=== PATIENT | female | born 2000 | race Two or more races ===

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

== ENCOUNTER 2019-01-08 22:32 | Emergency (ER) | payer OTHER ==
[2019-01-08 22:49] VITALS: BP 144/81
== END 2019-01-09 00:32 | disposition left against medical advice (07) ==
LOC: ED 22:32
DX: Z53.21 Procedure and treatment not carried out due to patient leaving prior to being seen by health care provider (principal)
CPT/HCPCS: 99281

== ENCOUNTER 2019-01-09 15:26 | Emergency (ER) | payer OTHER ==
[2019-01-09 16:13] VITALS: BP 127/80
--- NOTE | 2019-01-09 16:54 | UC ---
Skin Complaint HPI - HPI Summary HPI Summary: 18-year-old female with sore on her back over the past few days. - History of Current Complaint Chief Complaint: UCSkin Time Seen by Provider: 01/09/19 16:45 Stated Complaint: SORE ON BACK Hx Obtained From: Patient Hx Last Menstrual Period: [id number] ?: No Onset/Duration: Gradual Onset Skin Exposure Onset/Duration: Days Ago Timing: Constant Onset Severity: Mild Current Severity: Moderate Pain Intensity: 8 Location: Other - Mid back Character: Swelling, Pain, Redness Alleviating Factor(s): Nothing Associated Signs & Symptoms: Positive: Negative Related History: Other: - Patient has a history of abscesses in the past. - Allergy/Home Medications Allergies/Adverse Reactions: Allergies Allergy/AdvReac Type Severity Reaction Status Date / Time No Known Allergies Allergy Verified 01/09/19 16:13 Home Medications: Home Medications Acetaminophen TAB* [Tylenol TAB*] 975 mg PO Q6H PRN 01/09/19 [History Confirmed 01/09/19] PMH/Surg Hx/FS Hx/Imm Hx Previously Healthy: Yes Other History Of: Negative For: Anticoagulant Therapy - Surgical History Surgical History: Yes Surgery Procedure, Year, and Place: TONSILLECTOMY 2011 - Family History Known Family History: Positive: Hypertension, Diabetes, Other - lymphoma Negative: Cardiac Disease Family History: lymphoma - Social History Alcohol Use: None Substance Use Type: None Smoking Status (MU): Never Smoked Tobacco - Immunization History Most Recent Influenza Vaccination: 2014 Vaccination Up to Date: No Review of Systems All Other Systems Reviewed And Are Negative: Yes Constitutional: Positive: Negative Skin: Positive: Other - Patient has a history of abscesses. She has had this area over the past few days with tenderness and swelling, no drainage. Motor: Positive: Negative Neurovascular: Positive: Negative Musculoskeletal: Positive: Negative Neurological: Positive: Negative Psychological: Positive: Negative Is Patient Immunocompromised?: No Physical Exam Triage Information Reviewed: Yes Appearance: Well-Appearing, No Pain Distress, Well-Nourished Vital Signs: Initial Vital Signs Temp 98.8 F 01/09/19 16:10 Pulse 81 01/09/19 16:10 Resp 16 01/09/19 16:10 BP 127/80 01/09/19 16:10 Pulse Ox 99 01/09/19 16:10 Vital Signs Reviewed: Yes Skin: Positive: Other - Patient has an area of cellulitis in her mid back. No fluctuance, the midportion is very hard. Course/Dx - Course Course Of Treatment: At this point in time the cellulitis might be forming an abscess but it is not ready to be incised. I'm starting her on cephalexin 500 mg by mouth 3 times a day for 10 days because she refuses Bactrim saying that it never helps her. She is to apply warm moist compresses to the area and follow-up with a surgeon next week. She does have an appointment with the deliverer food on . I felt she should have this rechecked before . If she starts running fever, chills, vomiting and unable keep the medicine down that she go to the ER. - Diagnoses Provider Diagnosis: Cellulitis of mid back region Discharge - Sign-Out/Discharge Documenting (check all that apply): Patient Departure All imaging exams completed and their final reports reviewed: No Studies - Discharge Plan Condition: Fair Disposition: HOME Prescriptions: Cephalexin CAP* [Keflex 500 CAP*] 500 mg PO TID 10 Days #30 cap Patient Education Materials: Cellulitis (DC) Referrals: No Primary Care Phys,NOPCP [Primary Care Provider] - [facility] [Outside] Additional Instructions: Warm moist compresses to the area 4-6 times a day for 20 minutes each time. Definite follow-up with a surgeon on Saturday for a recheck. The phone number is [phone], [facility] Go to the emergency room over the weekend if you develop fever, chills, worsening symptoms. May take Tylenol every 4 hours and Motrin every 8 hours for pain. - Billing Disposition and Condition Condition: FAIR Disposition: Home
== END 2019-01-09 17:01 | disposition home or self-care (01) ==
LOC: UCEAST 15:26
DX: L03.312 Cellulitis of back [any part except buttock and flank] (principal)
CPT/HCPCS: 99212; G0463

== ENCOUNTER 2019-01-10 07:54 | Emergency (ER) | payer OTHER ==
[2019-01-10] MEDS ORDERED: Lidocaine 1% MPF ** 5 ML VIAL INJ ONE (08:55)
--- NOTE | 2019-01-10 09:35 | ED ---
Skin Complaint - HPI Summary HPI Summary: Patient is a 18-year-old female who presents emergency department for possible abscess to upper back 3-4 days. Patient states she is a history of abscesses. Patient states she went to [facility] yesterday and was diagnosed with cellulitis and placed on Keflex. Patient states today pain and swelling increased and presents for reevaluation. Patient otherwise denies past medical history. Patient denies fever, chills, nausea, vomiting. Symptoms are mild in severity. Touching area makes symptoms worse. Nothing makes symptoms better. - History of Current Complaint Chief Complaint: EDRashSkinAbscess Time Seen by Provider: 01/10/19 08:50 Stated Complaint: BOIL ON BACK PER PT Hx Obtained From: Patient Hx Last Menstrual Period: [id number] Pain Intensity: 7 - Allergy/Home Medications Allergies/Adverse Reactions: Allergies Allergy/AdvReac Type Severity Reaction Status Date / Time No Known Allergies Allergy Verified 01/10/19 07:59 Home Medications: Home Medications Acetaminophen [Tylenol Extra Strength] 1,000 mg PO Q8H PRN 01/10/19 [History Confirmed 01/10/19] PMH/Surg Hx/FS Hx/Imm Hx Previously Healthy: Yes Endocrine/Hematology History: Denies: Hx Anticoagulant Therapy, Hx Blood Disorders, Hx Diabetes, Hx Thyroid Disease Cardiovascular History: Denies: Hx Hypertension, Hx Pacemaker/ICD Respiratory History: Reports: Hx Asthma - well controlled Denies: Hx Chronic Obstructive Pulmonary Disease (COPD) GI History: Reports: Hx Gastroesophageal Reflux Disease Denies: Hx Ulcer History: Reports: Other Problems/Disorders - ovarian cysts Denies: Hx Dialysis, Hx Renal Disease Psychiatric History: Denies: Hx Panic Disorder - Surgical History Surgery Procedure, Year, and Place: TONSILLECTOMY 2011 - Immunization History Date of Tetanus Vaccine: UTD Date of Influenza Vaccine: UTD Infectious Disease History: No Infectious Disease History: Reports: History Other Infectious Disease - h. pylori; multiple skin abscesses Denies: Hx Clostridium Difficile, Hx Hepatitis, Hx Human Immunodeficiency Virus (HIV), Hx of Known/Suspected MRSA, Hx Shingles, Hx Tuberculosis, Hx Known/ Suspected VRE, Hx Known/Suspected VRSA, Traveled Outside the [place] in Last 30 Days - Family History Known Family History: Positive: Hypertension, Diabetes, Other - lymphoma Negative: Cardiac Disease Family History: lymphoma - Social History Alcohol Use: None Hx Substance Use: No Substance Use Type: Reports: None Hx Tobacco Use: No Smoking Status (MU): Never Smoked Tobacco Review of Systems Constitutional: Negative Negative: Fever, Chills Gastrointestinal: Negative Negative: Vomiting, Nausea Positive: Other - abscess to back All Other Systems Reviewed And Are Negative: Yes Physical Exam Triage Information Reviewed: Yes Vital Signs On Initial Exam: Initial Vitals Temp Pulse Resp BP Pulse Ox 99.0 F 86 14 142/83 96 01/10/19 07:56 01/10/19 07:56 01/10/19 07:56 01/10/19 07:56 01/10/19 07:56 Vital Signs Reviewed: Yes Appearance: Positive: Well-Appearing - Pt. sleeping in bed in NAD. Family member present. Skin: Positive: Warm, Dry, Other - Noted to upper back centrally there is a small scab with surrouding fluctuance and induration with overlying erythema. Head/Face: Positive: Normal Head/Face Inspection Eyes: Positive: Normal, EOMI, MARILUZ Neck: Positive: Supple Neurological: Positive: Normal, CN Intact II-III Psychiatric: Positive: Affect/Mood Appropriate Procedures - Incision and Drainage Posterior Midline Back Anesthesia: Local, Lidocaine Instrument(s): Scalpel - Small amount of yellowish purulent matter expressed Packing: Gauze Diagnostics - Vital Signs Vital Signs Temp Pulse Resp BP Pulse Ox 01/10/19 07:56 99.0 F 86 14 142/83 96 - Laboratory Lab Statement: Any lab studies that have been ordered have been reviewed, and results considered in the medical decision making process. Course/Dx - Course Course Of Treatment: Patient presenting with abscess to her back. She is afebrile well-appearing. Abscess was drained and packed noted above. Advised packing removal in 48 hours. To continue antibiotic as directed. Apply warm compresses. Tylenol or Motrin for pain as directed. We'll return to the ER for increased redness, swelling, fever, vomiting or if concerned. Patient understands and agrees with plan. - Differential Diagnoses - Skin Complaint Differential Diagnoses: Abscess, Cellulitis - Diagnoses Provider Diagnoses: Abscess Discharge - Sign-Out/Discharge Documenting (check all that apply): Patient Departure Patient Received Moderate/Deep Sedation with Procedure: No - Discharge Plan Condition: Improved Disposition: HOME Patient Education Materials: Abscess (ED) Referrals: [facility] [Outside] Additional Instructions: Follow up with your PCP in 2-3 days for a wound check Packing removal in 48 hours Can continue antibiotic as directed Apply warm compresses Tylenol or Motrin for pain as directed Return to ER for increased redness, swelling, fever, or if concerned - Billing Disposition and Condition Condition: IMPROVED Disposition: Home
[2019-01-10 10:09] VITALS: BP 148/71
== END 2019-01-10 10:07 | disposition home or self-care (01) ==
LOC: ED 07:54
DX: L02.212 Cutaneous abscess of back [any part, except buttock and flank] (principal); J45.909 Unspecified asthma, uncomplicated
CPT/HCPCS: 10060; 99282

== ENCOUNTER 2019-01-29 21:54 | Emergency (ER) | payer OTHER ==
--- NOTE | 2019-01-30 02:10 | ED ---
Skin Complaint - HPI Summary HPI Summary: Patient is a 18 y/o F presenting to ED with complaints of abscesses at her right buttocks for the past three days. All abscesses are reported to have onset at the same time. She states that she has a staph infection. Patient was seen by PCP and was advised to follow up with infectious diseases. However, she has not been able to obtain an appointment with infectious diseases yet and she is not on any medications for her Sx. Patient denies fever but states the abscesses are painful and that she has been fatigued. 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 She states that she has had regular abscesses, with the most recent episode being a month ago. On triage, pain is rated 7/10. Home medications and allergies are reviewed. - History of Current Complaint Chief Complaint: EDRashSkinAbscess Time Seen by Provider: 01/30/19 01:50 Stated Complaint: BOILS PER PT Hx Obtained From: Patient Hx Last Menstrual Period: [id number] Onset/Duration: Started Days Ago - 3, Still Present Skin Exposure Onset/Duration: Days Ago - 3 Timing: Constant, Lasting Days - 3 Current Severity: Severe Pain Intensity: 9 Pain Scale Used: 0-10 Numeric Skin Location: Other: - right buttocks area Character: Pain, Painful Associated Signs & Symptoms: Negative - Allergy/Home Medications Allergies/Adverse Reactions: Allergies Allergy/AdvReac Type Severity Reaction Status Date / Time No Known Allergies Allergy Verified 01/29/19 22:05 PMH/Surg Hx/FS Hx/Imm Hx Endocrine/Hematology History: Denies: Hx Anticoagulant Therapy, Hx Blood Disorders, Hx Diabetes, Hx Thyroid Disease Cardiovascular History: Denies: Hx Hypertension, Hx Pacemaker/ICD Respiratory History: Reports: Hx Asthma - well controlled Denies: Hx Chronic Obstructive Pulmonary Disease (COPD) GI History: Reports: Hx Gastroesophageal Reflux Disease Denies: Hx Ulcer History: Reports: Other Problems/Disorders - ovarian cysts Denies: Hx Dialysis, Hx Renal Disease Psychiatric History: Denies: Hx Panic Disorder - Surgical History Surgery Procedure, Year, and Place: TONSILLECTOMY 2011 - Immunization History Date of Tetanus Vaccine: UTD Date of Influenza Vaccine: UTD Infectious Disease History: No Infectious Disease History: Reports: History Other Infectious Disease - h. pylori; multiple skin abscesses Denies: Hx Clostridium Difficile, Hx Hepatitis, Hx Human Immunodeficiency Virus (HIV), Hx of Known/Suspected MRSA, Hx Shingles, Hx Tuberculosis, Hx Known/ Suspected VRE, Hx Known/Suspected VRSA, Traveled Outside the [place] in Last 30 Days - Family History Known Family History: Positive: Hypertension, Diabetes, Other - lymphoma Negative: Cardiac Disease Family History: lymphoma - Social History Alcohol Use: None Hx Substance Use: No Substance Use Type: Reports: None Hx Tobacco Use: No Smoking Status (MU): Never Smoked Tobacco Review of Systems Positive: Fatigue. Negative: Fever Skin: Other - positive - abscesses, right buttock and thigh All Other Systems Reviewed And Are Negative: Yes Physical Exam - Summary Physical Exam Summary: VITAL SIGNS: Reviewed. GENERAL: Patient is a well-developed and nourished female who is lying comfortable in the stretcher. Patient is not in any acute respiratory distress. HEAD AND FACE: No signs of trauma. No ecchymosis, hematomas or skull depressions. No sinus tenderness. EYES: PERRLA, EOMI x 2, No injected conjunctiva, no nystagmus. EARS: Hearing grossly intact. Ear canals and tympanic membranes are within normal limits. MOUTH: Oropharynx within normal limits. NECK: Supple, trachea is midline, no adenopathy, no JVD, no carotid bruit, no c- spine tenderness, neck with full ROM CHEST: Symmetric, no tenderness at palpation LUNGS: Clear to auscultation bilaterally. No wheezing or crackles. CVS: Regular rate and rhythm, S1 and S2 present, no murmurs or gallops appreciated. ABDOMEN: Soft, non-tender. No signs of distention. No rebound no guarding, and no masses palpated. Bowel sounds are normal. EXTREMITIES: FROM in all major joints, no edema, no cyanosis or clubbing. NEURO: Alert and oriented x 3. No acute neurological deficits. Speech is normal and follows commands. SKIN: Dry and warm; at right buttock and thigh, 3-4 areas of tenderness and redness with pointing in center consistent with multiple abscesses noted. Triage Information Reviewed: Yes Vital Signs On Initial Exam: Initial Vitals Temp Pulse Resp BP Pulse Ox 98.0 F 88 16 133/83 99 01/29/19 22:03 01/29/19 22:03 01/29/19 22:03 01/29/19 22:03 01/29/19 22:03 Vital Signs Reviewed: Yes Diagnostics - Vital Signs Vital Signs Temp Pulse Resp BP Pulse Ox 01/30/19 00:39 98.2 F 98 16 149/77 98 01/29/19 22:03 98.0 F 88 16 133/83 99 - Laboratory Result Diagrams: 01/30/19 02:46 01/30/19 02:46 Lab Statement: Any lab studies that have been ordered have been reviewed, and results considered in the medical decision making process. Course/Dx - Course Course Of Treatment: Patient is a 18 y/o F presenting to ED with complaints of abscesses at her right buttocks for the past three days. All abscesses are reported to have onset at the same time. She states that she has a staph infection. Patient was seen by PCP and was advised to follow up with infectious diseases. However, she has not been able to obtain an appointment with infectious diseases yet and she is not on any medications for her Sx. Patient denies fever but states the abscesses are painful and that she has been fatigued. 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 She states that she has had regular abscesses, with the most recent episode being a month ago. On physical exam, at right buttock and thigh, 3-4 areas of tenderness and redness with pointing in center consistent with multiple abscesses noted. Labs showed WBC 12.1, Hgb 10.9, Hct 33, absolute neuts 8.9, glucose 103, AST 10, ALT 5, CRP 22.25, Beta HCG < 0.60. During ED course, patient received vancomycin 1000 mg, 250 mls @ 166.667 mls/hr IVPD ONCE ONE, morphine 4 mg IV ED, reglan 10 mg IV SLOW PU, and toradol 15 mg IV PUSH ONCE. 0308 - Patient's case was discussed with Dr. Darby, Dr. Darby to evaluate for admission. 0553 - Dr. Darby requests that the patient be admitted to surgery. 0559 - Patient's case was discussed with Dr. Buckner, Dr. Buckner will come to evaluate the patient. Patient is signed-out to Dr. Rose at 0700 01/30/[address] Buckner evaluation in ED. - Diagnoses Provider Diagnoses: Abscess of multiple sites - Physician Notifications Discussed Care Of Patient With: Alfie Darby Time Discussed With Above Provider: 03:08 Instructed by Provider To: Other - 0308 - Patient's case was discussed with Dr. Darby, Dr. Darby to evaluate for admission. 0553 - Dr. Darby requests that the patient be admitted to surgery. 0559 - Patient's case was discussed with Dr. Buckner , Dr. Buckner will come to evaluate the patient. Discharge - Sign-Out/Discharge Documenting (check all that apply): Sign-Out Patient Signing out patient TO: James Rose - Discharge Plan Condition: Stable Referrals: No Primary Care Phys,NOPCP [Primary Care Provider] - - Attestation Statements Document Initiated by Scribe: Yes Documenting Scribe: CHARLIE DENG Provider For Whom Scribe is Documenting (Include Credential): KAITLIN SMYTH MD Scribe Attestation: I, CHARLIE DENG, scribed for KAITLIN SMYTH MD on 01/30/19 at 0717. Status of Scribe Document: Ready
[2019-01-30] MEDS ORDERED: Vancomycin(*) 1,000 MG in NS 0.9% 250 ML* 250 ML IVPB ONE (02:13)
[2019-01-30] MEDS ORDERED: Morphine 4 MG/ML VIAL (1 ml) 4 MG/ML VIAL IV ONE ×2 (02:14→07:58)
[2019-01-30] MEDS ORDERED: Ketorolac INJ* 30 MG/ML 1 ML VIAL IV PUSH ONE (02:15)
[2019-01-30] MEDS ORDERED: Metoclopramide IV* 5 MG/ML 2 ML VIAL IV SLOW PU ONE (02:15)
[2019-01-30 02:53] LABS: ABS Basophils 0.1 10^3/ul (0-0.2); ABS Eosinophils 0.1 10^3/ul (0-0.6); ABS Lymphocytes 2.3 10^3/ul (1.0-4.8); ABS Monocytes 0.8 10^3/ul (0-0.8); ABS Neutrophils 8.9 10^3/ul (1.5-7.7); Eosinophil % 0.5 %; Hematocrit 33 % (35-47); Hemoglobin 10.9 g/dL (12.0-16.0); Lymphocyte % 19.1 %; Mean Corpuscular HGB Conc 33 g/dL (31-36); Mean Corpuscular Hemoglobin 28 pg (27-31); Mean Corpuscular Volume 85 fL (80-97); Mean Platelet Volume 7.5 fL (7.4-10.4); Platelet Count 343 10^3/uL (150-450); Red Blood Count 3.84 10^6 /uL (3.70-4.87); Red Cell Distribution Width 14 % (10-15); White Blood Count 12.1 10^3/uL (3.5-10.8)
[2019-01-30 03:14] LABS: ALT 5 U/L (7-52); AST 10 U/L (13-39); Albumin 3.9 g/dL (3.2-5.2); Albumin/Globulin Ratio 1.4 (1-3); Alkaline Phosphatase 48 U/L (34-104); Anion Gap 7 mmol/L (2-11); Blood Urea Nitrogen 13 mg/dL (6-24); C Reactive Protein 22.25 mg/L (<8.01); CO2 Carbon Dioxide 23 mmol/L (22-32); Calcium 8.7 mg/dL (8.6-10.3); Chloride 107 mmol/L (101-111); EGFR African American 142.1 (>60); EGFR Non-African American 117.4 (>60); Globulin 2.8 g/dL (2-4); Glucose 103 mg/dL (70-100); Potassium 3.6 mmol/L (3.5-5.0); Sodium 137 mmol/L (135-145); Total Protein 6.7 g/dL (6.4-8.9)
[2019-01-30 03:20] LABS: HCG Pregnancy < 0.60 mIU/mL
--- NOTE | 2019-01-30 07:34 | ED ---
Progress - Progress Note Progress Note: This patient was signed out from Dr. Richardson to Dr. Rose upon shift change at 07: 00 01/30/19 pending surgical consult. Discussed case with Dr. Buckner, who does not believe that the patient needs I+D because the patient has boils that are indurated. Discussed case with Dr. Echavarria who recommended discharge with doxycycline and pain medications and follow up with Dr. Buckner, surgery. The patient refused discharge and requested to speak with Dr. Echavarria. Dr. Echavarria was then notified. Discussed case with Dr. Freitas, who came into the ED and did a few I+Ds. The patient is feeling better. I discussed results with patient , and she reports feeling better. She is hemodynamically stable and safe for discharge. Strict return precautions given and she will otherwise follow up with her PCP. Re-Evaluation - Re-Evaluation First Eval Re-Evaluation Time: 13:46 Course/Dx - Course Course Of Treatment: This patient was signed out from Dr. Richardson to Dr. Rose upon shift change at 07:00 01/30/19 pending surgical consult. Discussed case with Dr. Buckner, who does not believe that the patient needs I+D because the patient has boils that are indurated and there was not much to drain. Discussed case with Dr. Echavarria who recommended discharge with doxycycline and pain medications and follow up with Dr. Buckner, surgery. The patient refused discharge and requested to speak with Dr. Echavarria. Dr. Echavarria was then notified. Discussed case with Dr. Freitas, who came into the ED and did a few I+Ds. The patient is feeling better. I discussed results with patient, and she reports feeling better. She is hemodynamically stable and safe for discharge. Strict return precautions given and she will otherwise follow up with her PCP. - Diagnoses Provider Diagnoses: Skin infection - Provider Notifications Discussed Care Of Patient With: Luli Buckner Time Discussed With Above Provider: 07:49 Instructed by Provider To: Other - does not believe that the patient needs I+D because the patient has boils that are indurated Discharge - Sign-Out/Discharge Documenting (check all that apply): Patient Departure - DC Patient Received Moderate/Deep Sedation with Procedure: No - Discharge Plan Condition: Stable Disposition: HOME Prescriptions: DOXYcycline CAP(*) [DOXYcycline 100MG CAP(*)] 100 mg PO BID #20 cap Oxycodone HCl/Acetaminophen [Percocet 5-325 mg Tablet] 1 each PO TID PRN #12 tablet MDD 0 PRN Reason: Pain - Mild Referrals: [facility] [Outside] (1-3 days) Additional Instructions: Follow up with your primary care physician in 1-3 days. RETURN TO THE EMERGENCY DEPARTMENT FOR CHANGING OR WORSENING SYMPTOMS. - Billing Disposition and Condition Condition: STABLE Disposition: Home - Attestation Statements Document Initiated by Luis E: Yes Documenting Scribe: Taiwo Hawkins Provider For Whom Luis E is Documenting (Include Credential): James Rose MD Scribe Attestation: Taiwo Ambrosio scribed for James Rose MD on 01/31/19 at 1139. Scribe Documentation Reviewed: Yes Provider Attestation: The documentation as recorded by the Taiwo corbett accurately reflects the service I personally performed and the decisions made by me, Ben Rose MD Status of Scribe Document: Viewed Consult Consult: At 20:[address] Echavarria, hospitalist, who will see the patient in the ED. At 13:[address] Freitas, who came into the ED and did a few I+ Ds.
--- NOTE | 2019-01-30 09:21 | CONSULT ---
Subjective Date of Service: 01/30/19 Interval History: Multiple boils on R buttock over past few days, very painful. No sweats or chills. She has had multiple buttock and back abcesses in past, most recently about a month or so ago. She saw Dr. Reyna once for this problem. Her abcesses have been lanced multiple times. No current meds. Review of Systems - Measurements Intake and Output: Intake and Output Last 24 Hours 01/28/19 01/29/19 01/30/19 01/31/19 06:59 06:59 06:59 06:59 Intake Total 250 Balance 250 Weight 210 lb Intake: IV Fluids 250 Objective Vital Signs - 8 hr 01/30/19 01/30/19 01/30/19 01:49 01:50 02:00 Pulse Rate 72 83 87 Respiratory Rate Blood Pressure 134/63 (mmHg) O2 Sat by Pulse 98 98 98 Oximetry 01/30/19 01/30/19 01/30/19 02:20 02:25 03:00 Pulse Rate 85 66 Respiratory 18 Rate Blood Pressure 124/89 (mmHg) O2 Sat by Pulse 100 98 Oximetry 01/30/19 01/30/19 04:00 08:51 Pulse Rate 59 Respiratory 18 Rate Blood Pressure (mmHg) O2 Sat by Pulse 99 Oximetry Oxygen Devices in Use Now: None Appearance: Alert, on her L side on ED stretcher. Appears comfortable. Eyes: No Scleral Icterus Skin: - - 5 abcesses/indurated areas, all pointing, 1-2 cm surrounding erythema , all very tender. Neurological: Alert and Oriented x 3, NL Sensation Result Diagrams: 01/30/19 02:46 01/30/19 02:46 Assessment/Plan - Billing Plan By Medical Problem: 1. Recurrent skin abcesses. No cultures in system, would consider MRSA in absence of culture evidence. Should be treatable with local means, such as applied heat, lancing. Antibiotics might be used as an adjunct to local tx. I discussed the case with Drs. Freitas, Dudley and Milton. Soft tissue US done, discussed with Dr. Buckner. Patient to be discharged by Dr. Rose with local care instructions, analgesics, doxycycline, fup instructions. 2.
--- NOTE | 2019-01-30 13:15 | CONS ---
CONSULTATION REPORT: DATE OF CONSULT: 01/30/19 - EMERGENCY DEPT SERVICE: General Surgery. ATTENDING PHYSICIAN: Luli Buckner MD REQUESTING PHYSICIAN: Dr. Richardson from the emergency room. REASON FOR CONSULTATION: Right buttock and thigh boils. HISTORY OF PRESENT ILLNESS: Ms. Bueno is a 18-year-old female with a history of extremity abscesses in the past, who presented to the emergency room with complaints of very painful right buttock and thigh soft tissue boils. She said that she has had them for approximately 2 weeks and they are very painful and she cannot sleep at night because of them. She denies having any fevers at home , but she says that she does feel very tired. She is very weepy and states that she has so much pain that she cannot sleep. She states that in the past, she has had very large abscesses develop from these that have required incision and drainages. She states that she has also only received oral antibiotics for them and she was supposed to see Infectious Diseases regarding these multiple skin infections. She is accompanied today by her mother. PAST MEDICAL HISTORY: None. PAST SURGICAL HISTORY: Tonsillectomy. MEDICATIONS: None. ALLERGIES: No known drug allergies. FAMILY HISTORY: Hypertension. SOCIAL HISTORY: The patient is a nonsmoker. REVIEW OF SYSTEMS: Positive for painful boils on her right buttock and thigh. PHYSICAL EXAM: Vital Signs: Temperature is 98.2, pulse is 59, respiratory rate is 18, O2 sat is 99% O2 on room air, blood pressure is 124/89. On the right buttock, there is approximately 1 cm area of induration and tenderness with no clear fluctuance. On the upper posterior thigh, there are 2 flat lesions with pinpoint white foci likely representing early skin boils and then inferiorly there is an additional erythematous and tender indurated area of skin. LABORATORY VALUES: White blood cell count is 12.1, hemoglobin is 10.9, hematocrit is 33, platelets are 343. Sodium is 137, potassium is 3.6, chloride is 107, CO2 is 23, BUN is 13, creatinine is 0.65, glucose is 103. AST is 10, ALT is 5. Alkaline phosphate is 48, C-reactive protein is 22.25. ASSESSMENT AND PLAN: Mary is a 18-year-old female, who presents to the emergency room with multiple buttock and upper thigh boils. 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 At this time, there does no appear to be any lesions that are fluctuant or appear to be abscesses amenable to drainage. I have discussed this with the patient and her mother as well as the emergency room physician, Dr. Rose. She may benefit from IV antibiotics and an Infectious Disease consultation, but at this time, there are no clearly drainable abscesses on physical exam. [id number]/[facility] #: [id number] [facility] CENTERShoshana
[2019-01-30 15:07] VITALS: BP 0/0
--- NOTE | 2019-01-30 21:17 | PRO ---
DATE OF PROCEDURE: 01/30/2019 - EMERGENCY DEPT DATE OF : 2000 SURGEON: Edy Freitas MD [employer]ENT: None. ANESTHESIA: 1% lidocaine plain used locally. PREPROCEDURE DIAGNOSIS: Cutaneous abscesses of the left lower extremity. POSTPROCEDURE DIAGNOSIS: Cutaneous abscesses of the left lower extremity. PROCEDURE: Incision and drainage of multiple cutaneous abscesses of the left lower extremity. SPECIMENS: None. DRAINS: None. COMPLICATIONS: None. DESCRIPTION OF PROCEDURE: The patient was positioned in the left lateral decubitus position. The 5 different sites were identified and each prepped out with Betadine. Time-out was performed. Local anesthetic was infiltrated into each area prior to incision and drainage. There were 2 of the 5 areas that did not require injection of anesthetic due to the fact that they opened upon being punctured by the needle. Of the 3 remaining sites, each site was opened in cruciate fashion and thick purulent drops of fluid were expressed from each site. Each site was probed with a clamp in order to assure no loculations remained. The abscesses were small, no greater than 7 mm diameter. Each of these 3 remaining sites was irrigated with the anesthetic and then the wounds were dressed with gauze and tape. The patient tolerated this procedure well. [id number]/[facility] #: [id number] [facility]US[facility]
== END 2019-01-30 15:06 | disposition home or self-care (01) ==
LOC: ED 21:54
DX: L02.31 Cutaneous abscess of buttock (principal); L02.415 Cutaneous abscess of right lower limb
CPT/HCPCS: 36415; 80053; 84702; 85025; 86140; 87040; 96365; 96366; 96375; 96376; 99284; J1885; J2270; J2765; J3370

== ENCOUNTER 2019-07-30 12:46 | Emergency (ER) | payer OTHER ==
[2019-07-30 13:35] LABS: Influenza B Molecular POSITIVE (Negative)
[2019-07-30] MEDS ORDERED: Acetaminophen TAB* 325 MG PO ONE (15:14)
--- NOTE | 2019-07-30 15:15 | ED ---
Influenza-Like Illness - HPI Summary HPI Summary: Pt. is a 18 y.o female who presents to the ER for cough, fever, h/a, mylagias x 3 days. Pt. notes hx of asthma and has been needing neb treatments. Also notes diarrhea and vomiting. No abd. pain. Pt. tolerating fluids in ED. Sxs are mild in severity. No current modifying factors. - History of Current Complaint Chief Complaint: EDFluSymptoms Time Seen by Provider: 07/30/19 15:13 Hx Obtained From: Patient - Allergy/Home Medications Allergies/Adverse Reactions: Allergies Allergy/AdvReac Type Severity Reaction Status Date / Time No Known Allergies Allergy Verified 01/29/19 22:05 Home Medications: Home Medications Guaifenesin/Dextromethorphan [Robitussin Cough & Chest 20-400 mg/20Ml] 10 ml PO BID PRN 07/30/19 [History Confirmed 07/30/19] Multivitamins/Minerals TAB* [Theragran/minerals TAB*] 1 tab PO DAILY 07/30/19 [ History Confirmed 07/30/19] PMH/Surg Hx/FS Hx/Imm Hx Previously Healthy: Yes Endocrine/Hematology History: Denies: Hx Anticoagulant Therapy, Hx Blood Disorders, Hx Diabetes, Hx Thyroid Disease Cardiovascular History: Denies: Hx Hypertension, Hx Pacemaker/ICD Respiratory History: Reports: Hx Asthma - well controlled Denies: Hx Chronic Obstructive Pulmonary Disease (COPD) GI History: Reports: Hx Gastroesophageal Reflux Disease Denies: Hx Ulcer History: Reports: Other Problems/Disorders - ovarian cysts Denies: Hx Dialysis, Hx Renal Disease Psychiatric History: Denies: Hx Panic Disorder - Surgical History Surgery Procedure, Year, and Place: TONSILLECTOMY 2011 - Immunization History Date of Tetanus Vaccine: UTD Date of Influenza Vaccine: UTD Infectious Disease History: No Infectious Disease History: Reports: History Other Infectious Disease - h. pylori; multiple skin abscesses Denies: Hx Clostridium Difficile, Hx Hepatitis, Hx Human Immunodeficiency Virus (HIV), Hx of Known/Suspected MRSA, Hx Shingles, Hx Tuberculosis, Hx Known/ Suspected VRE, Hx Known/Suspected VRSA, Traveled Outside the [place] in Last 30 Days - Family History Known Family History: Positive: Hypertension, Diabetes, Other - lymphoma Negative: Cardiac Disease Family History: lymphoma - Social History Occupation: Unemployed Lives: With Family Alcohol Use: None Hx Substance Use: No Substance Use Type: Reports: None Hx Tobacco Use: No Smoking Status (MU): Never Smoked Tobacco Review of Systems Positive: Fever, Chills Eyes: Negative Positive: Sore Throat, Nasal Discharge Positive: Shortness Of Breath, Cough Positive: Vomiting, Diarrhea. Negative: Abdominal Pain Positive: Myalgia Skin: Negative Positive: Headache All Other Systems Reviewed And Are Negative: Yes Physical Exam Triage Information Reviewed: Yes Vital Signs On Initial Exam: Initial Vitals Temp Pulse Resp BP Pulse Ox 99.2 F 96 20 152/92 97 07/30/19 13:01 07/30/19 13:01 07/30/19 13:01 07/30/19 13:01 07/30/19 13:01 Vital Signs Reviewed: Yes Appearance: Positive: No Pain Distress - Pt. sitting on bed in NAD> Mother present. Skin: Positive: Warm, Dry Head/Face: Positive: Normal Head/Face Inspection Eyes: Positive: Normal, EOMI, MARILUZ ENT: Positive: Pharynx normal, Nasal congestion, TMs normal Neck: Positive: Supple, Nontender. Negative: Nuchal Rigidity Respiratory/Lung Sounds: Positive: Breath Sounds Present, Other - Mild decrease breath sounds in bases.. Negative: Rales, Rhonchi Cardiovascular: Positive: Normal, RRR Abdomen Description: Positive: Nontender, Soft Neurological: Positive: Normal, CN Intact II-III Psychiatric: Positive: Affect/Mood Appropriate Procedures - Sedation Patient Received Moderate/Deep Sedation with Procedure: No Diagnostics - Vital Signs Vital Signs Temp Pulse Resp BP Pulse Ox 07/30/19 14:30 100.2 F 83 16 141/73 97 07/30/19 13:01 99.2 F 96 20 152/92 97 - Laboratory Lab Results: Lab Results 07/30/19 Range/Units 13:04 Influenza A (Rapid) Not Reportable Influenza B (Rapid) Positive A (Negative) Lab Statement: Any lab studies that have been ordered have been reviewed, and results considered in the medical decision making process. Flu Symptom Course/Dx - Course Course Of Treatment: Pt. positive for influenza. Low grade fever. VS otherwise normal. Pt. notes she is feeling SOB and request breathing treatment. Tylenol also given. Outside of tamiflu window. Rx for albuterol given. Will f.u with pcp and return to er if sxs change or worsen. - Diagnoses Differential Diagnosis/HQI/PQRI: Positive: Influenza, Pneumonia, Upper Respiratory Infection Provider Diagnoses: Influenza Discharge ED - Sign-Out/Discharge Documenting (check all that apply): Patient Departure - Discharge Plan Condition: Good Disposition: HOME Prescriptions: Albuterol 2.5MG/3ML (0.083%)* [Ventolin 2.5 MG/3 ML NEB.DESTINY*] 2.5 mg INH Q6H # 30 neb.destiny Patient Education Materials: Influenza (ED) Referrals: [facility] [Outside] [facility] [Outside] Additional Instructions: Establish PCP by call referral line Can follow up with [facility] if symptoms persist Tylenol or Motrin for fever and pain as directed Increase fluids and rest Return to ER if symptoms change or worsen - Billing Disposition and Condition Condition: GOOD Disposition: Home - Attestation Statements Provider Attestation: pt seen by midlevel provider independently, based on their assessment, it was not necessary to present the case to me but I was available for consultation. I did not form a physician-patient relationship with the patient. The chart however, has been reviewed. am signing this note strictly in an administrative capacity.
[2019-07-30] MEDS ORDERED: Albuterol 2.5 MG/3 ML NEB.SOL* (0.083%) INH ONE (15:23)
[2019-07-30 15:49] VITALS: BP 148/91
== END 2019-07-30 15:47 | disposition home or self-care (01) ==
LOC: ED 12:46
DX: J11.1 Influenza due to unidentified influenza virus with other respiratory manifestations (principal); J45.909 Unspecified asthma, uncomplicated; K21.9 Gastro-esophageal reflux disease without esophagitis
CPT/HCPCS: 99282; A9270-GY

== ENCOUNTER 2022-04-27 08:10 | Inpatient (IN) ==
[2022-04-27] MEDS ORDERED: Buffered Lidocaine 1% SYRIN 1 ml INTRADERM ONE (09:27)
[2022-04-27] MEDS ORDERED: Promethazine INJ(RESTRICTED) 25 MG/ML 1 ml VIAL IV PRN (09:27)
[2022-04-27] MEDS ORDERED: Nalbuphine 10 MG/ML 1 ML VIAL IV PRN (09:27)
[2022-04-27] MEDS ORDERED: Lactated Ringers 1000 ml BAG 1,000 ML IV ONE (09:27)
[2022-04-27] MEDS ORDERED: miSOPROStol 100 mcg TAB PO ONE (10:05)
[2022-04-27 10:10] LABS: ABS Monocytes 0.7 10^3/ul (0-0.8); ABS Neutrophils 8.2 10^3/ul (1.5-7.7); Eosinophil % 0.4 %; Hematocrit 34 % (35-47); Hemoglobin 11.6 g/dL (12.0-16.0); Lymphocyte % 17.8 %; Mean Corpuscular HGB Conc 34 g/dL (31-36); Mean Corpuscular Hemoglobin 29 pg (27-31); Mean Corpuscular Volume 86 fL (80-97); Mean Platelet Volume 8.5 fL (7.4-10.4); Platelet Count 250 10^3/uL (150-450); Red Blood Count 4.01 10^6 /uL (3.70-4.87); Red Cell Distribution Width 14 % (10-15)
[2022-04-27 10:14] LABS: Urine Appearance Cloudy; Urine Bilirubin Negative (Negative); Urine Blood Negative (Negative); Urine Color Yellow; Urine Glucose Negative (Negative); Urine Ketones Negative (Negative); Urine Nitrite Negative (Negative); Urine Protein 1+(30 mg/dL) (Negative); Urine Specific Gravity 1.021 (1.002-1.030); Urine Urobilinogen Negative (Negative)
[2022-04-27 10:37] LABS: Urine Benzodiazepine Screen None Detected (None Detect); Urine Cannabinoids Screen None Detected (None Detect); Urine Opiates Screen None Detected (None Detect)
[2022-04-27 10:38] LABS: Albumin 3.1 g/dL (3.2-5.2); Albumin/Globulin Ratio 1.2 (1-3); Calcium 8.6 mg/dL (8.6-10.3); Globulin 2.5 g/dL (2-4); Potassium 4.2 mmol/L (3.5-5.0); Total Bilirubin 0.5 mg/dL (0.2-1.0); Total Protein 5.6 g/dL (6.4-8.9); Uric Acid 4.1 mg/dL (2.3-6.6); eGFR CKD-EPI 130.1 (>60)
[2022-04-27 10:41] LABS: Urine Bacteria Absent (Absent); Urine Red Blood Cell 2+(6-10/hpf) (Absent); Urine Squamous Epithelial Cell Present (Absent); Urine White Blood Cell 2+(11-20/hpf) (Absent)
[2022-04-27 12:04] LABS: Urine Creatinine Concentration 139.89 mg/dL
[2022-04-27] MEDS ORDERED: miSOPROStol 100 mcg TAB VAGINAL ONE (15:04)
[2022-04-27] MEDS ORDERED: Penicillin G Potassium IV 5,000,000 UNITS in NS 0.9% 100 ml BAG 100 ML IVPB ONE (15:14)
[2022-04-27] MEDS ORDERED: Oxytocin in LR 20,000 MILLI.UNIT/1,000 ML BAG IV SCH (16:30)
[2022-04-27] MEDS: Penicillin G Potassium IV 3,000,000 UNITS in NS 0.9% 100 ml BAG 100 ML IVPB SCH (21:44)
[2022-04-27] MEDS: Lactated Ringers 1000 ml BAG 1,000 ML IV SCH (22:08)
[2022-04-28] MEDS: Penicillin G Potassium IV 3,000,000 UNITS in NS 0.9% 100 ml BAG 100 ML IVPB SCH ×2 (01:06→06:29)
[2022-04-28] MEDS ORDERED: OBEPIDURAL (200 ML) 200 ML EPIDURAL ONE (01:26)
[2022-04-28] MEDS ORDERED: EPINEPHrine SULFITE FREE 1 MG/ML ONE (01:29)
[2022-04-28] MEDS ORDERED: Lidocaine 1% MPF 5 ML VIAL ONE (01:29)
[2022-04-28] MEDS ORDERED: Lidocaine 1% VIAL 10 MG/ML VIAL 30 ML ONE (01:31)
[2022-04-28] MEDS ORDERED: Sodium Citrate/Citric Acid LIQ 15 ML UDC PO PRN (03:13)
[2022-04-28] MEDS ORDERED: Phenylephrine 40 mcg/mL 10mL (400mcg) SYRINGE IV PUSH PRN ×2 (03:13)
[2022-04-28] MEDS ORDERED: Lactated Ringers 1000 ml BAG 500 ML IV PRN ×2 (03:13)
[2022-04-28] MEDS ORDERED: Lactated Ringers 1000 ml BAG 1,000 ML IV ONE (03:13)
[2022-04-28] MEDS ORDERED: OBEPIDURAL (200 ML) 200 ML EPIDURAL SCH (04:00)
[2022-04-28] MEDS ORDERED: Lactated Ringers 1000 ml BAG 1,000 ML IV SCH ×3 (04:00→11:00)
[2022-04-28] MEDS: Lactated Ringers 1000 ml BAG 1,000 ML IV SCH ×2 (06:35→09:02)
[2022-04-28] MEDS ORDERED: ceFOXitin 2 GM IVPREMIX 2 GM/50 ML BAG ONE (08:56)
[2022-04-28] MEDS ORDERED: Oxytocin 10 UNITS/ML 1 ML VIAL ONE (08:59)
[2022-04-28] MEDS ORDERED: Chloroprocaine 3% 20 ml VIAL ONE (08:59)
[2022-04-28] MEDS ORDERED: Phenylephrine 40 mcg/mL 10mL (400mcg) SYRINGE ONE (08:59)
[2022-04-28] MEDS ORDERED: Lidocaine 2% PF 10 ML AMP (OR) ONE (08:59)
[2022-04-28] MEDS ORDERED: fentaNYL 100 mcg/2 ml 50 MCG/ML VIAL ONE ×2 (09:00→09:32)
[2022-04-28] MEDS ORDERED: Morphine PF AMP (0.5MG/ML) 5 MG/10 ML AMP ONE (09:32)
[2022-04-28] MEDS ORDERED: Scopolamine 1 mg/72hr PATCH ONE (09:34)
[2022-04-28] MEDS ORDERED: Acetaminophen IV 1 GM/100ML 1,000 MG/100 ML BAG IV ONE (09:44)
[2022-04-28] MEDS ORDERED: Naloxone 0.4 mg VIAL 0.4 mg/ml 1 ml VIAL IV PRN (09:53)
[2022-04-28] MEDS ORDERED: Ondansetron 4 mg VIAL 2 MG/ML 2 ml VIAL IV PRN ×2 (09:53→09:55)
[2022-04-28] MEDS ORDERED: fentaNYL 100 mcg/2 ml 50 MCG/ML VIAL IV PRN (09:53)
[2022-04-28] MEDS ORDERED: Metoclopramide 5 MG/ML VIAL (10 mg) IV PRN (09:55)
[2022-04-28] MEDS ORDERED: Acetaminophen IV 1 GM/100ML 1,000 MG/100 ML BAG IV PRN (09:55)
[2022-04-28] MEDS ORDERED: Naloxone 0.4 mg VIAL 0.4 mg/ml 1 ml VIAL IV PUSH PRN (09:55)
[2022-04-28] MEDS ORDERED: Witch Hazel PAD JAR TOPICAL PRN (10:47)
[2022-04-28] MEDS ORDERED: Glycerin ADULT 2.4 gm SUPP PR PRN (10:47)
[2022-04-28] MEDS ORDERED: Oxytocin in LR 20,000 MILLI.UNIT/1,000 ML BAG IV SCH (11:00)
[2022-04-29 06:34] LABS: ABS Lymphocytes 2.1 10^3/ul (1.0-4.8); ABS Monocytes 0.8 10^3/ul (0-0.8); ABS Neutrophils 7.8 10^3/ul (1.5-7.7); Eosinophil % 0.3 %; Hematocrit 30 % (35-47); Hemoglobin 10.2 g/dL (12.0-16.0); Lymphocyte % 19.6 %; Mean Corpuscular HGB Conc 34 g/dL (31-36); Mean Corpuscular Hemoglobin 30 pg (27-31); Mean Corpuscular Volume 87 fL (80-97); Mean Platelet Volume 8.4 fL (7.4-10.4); Platelet Count 219 10^3/uL (150-450); Red Blood Count 3.42 10^6 /uL (3.70-4.87); Red Cell Distribution Width 14 % (10-15); White Blood Count 10.8 10^3/uL (3.5-10.8)
[2022-04-29] MEDS: Penicillin G Potassium IV 3,000,000 UNITS in NS 0.9% 100 ml BAG 100 ML IVPB SCH (07:46)
[2022-05-01 08:10] VITALS: BP 124/63
== END 2022-05-01 14:58 | disposition home or self-care (01) | DRG 540 ==
LOC: MCHOBOUT 08:10 → MCHOB 10:00
PROVIDERS: ADMIT Midwife; ATTEND Midwife